=== PATIENT | male | born 1980 | race African-American/Black ===

== ENCOUNTER 2023-01-01 16:49 | Emergency (ER) | payer MEDICAID ==
[~2023-01-01] VITALS: Ht 185.4 cm; Wt 122.5 kg
[2023-01-01 17:10] VITALS: BP_SYST 158
[2023-01-01] MEDS ORDERED: ceFAZolin SODIUM 1 GM VIAL IM ONE (17:15)
[2023-01-01] MEDS ORDERED: DICL20GE TP (17:27)
[2023-01-01] MEDS ORDERED: IBUP-1971 PO (17:27)
[2023-01-01 17:30] VITALS: BP_SYST 142
== END 2023-01-01 17:31 | disposition home or self-care (01) ==
LOC: SED 16:49
DX: L03.012 Cellulitis of left finger (principal); L08.89 Other specified local infections of the skin and subcutaneous tissue; Z79.899 Other long term (current) drug therapy
CPT/HCPCS: 99283; 96372; J0690